=== PATIENT | female | born 1950 | race Caucasian/White ===

== ENCOUNTER 2018-04-06 10:43 | Day surgery (SDC) | payer MEDICARE, OTHER ==
[2018-04-06] VITALS (8 sets, daily range): BP systolic 112–128; BP diastolic 53–73
[~2018-04-06] VITALS: Ht 157.5 cm; Wt 77.1 kg
[~2018-04-06 10:43] MED LIST: COLACE100 MG ORAL; MIRALAX119 GM PO
[2018-04-06] MEDS ORDERED: LR 1000ml 1,000 ML IVLG SCH (11:09)
--- NOTE | 2018-04-06 11:09 | Anethesia Preoperative Eval ---
Anesthesia Pre-op PMH/ROS General Date of Evaluation: Apr 06, 2018 Time of Evaluation: 11:32 Anesthesiologist: Annmarie ASA Score: ASA 3 Mallampati Score Class I : Soft palate, uvula, fauces, pillars visible Class II: Soft palate, uvula, fauces visible Class III: Soft palate, base of uvula visible Class IV: Only hard plate visible Mallampati Classification: Class II Surgeon: Ramin Diagnosis: Abd Pain Surgical Procedure: EGD Anesthesia History: none Family History: no anesthesia problems Allergies: Coded Allergies: CODEINE (Verified Allergy, Unknown, 04/26/16) Medications: see eMAR Past Medical History Cardiovascular: Reports: HTN, other - HL Gastrointestinal/Genitourinary: Reports: GERD Other: obesity - BMI 32 Anesthesia Pre-op Phys. Exam Physician Exam Constitutional: NAD Neurologic: CN 2-12 intact Cardiovascular: RRR Respiratory: CTA Gastrointestinal: S/NT/ND Airway Exam Mallampati Score: Class II MO: full ROM: limited Teeth: intact Anesthesia Pre-op A/P Risk Assessment & Plan Assessment: ASA 3 Plan: TIVA Status Change Before Surgery: Alton Leahy MD Apr 06, 2018 11:09
[2018-04-06] MEDS ORDERED: Metoclopramide 10mg/2ml Inj IVP PRN (11:15)
[2018-04-06] MEDS ORDERED: Midazolam 2mg/2ml Inj IVP PRN (11:15)
[2018-04-06] MEDS ORDERED: LORazepam Inj 2mg/ml 1ml IV PRN (11:15)
[2018-04-06] MEDS ORDERED: Ketorolac 30mg Inj IV PRN ×2 (11:15)
[2018-04-06] MEDS ORDERED: Labetalol 5mg/ml 20ml vial IV PRN (11:15)
[2018-04-06] MEDS ORDERED: fentaNYL 100 mcg/2 mL IV PRN (11:15)
[2018-04-06] MEDS ORDERED: Atropine Inj 1mg/10ml Syr IV PRN (11:15)
[2018-04-06] MEDS ORDERED: DiphenhydrAMINE 50mg/ml Inj IVP PRN (11:15)
[2018-04-06] MEDS ORDERED: BENICAR5 MG ORAL (11:23)
[2018-04-06] MEDS ORDERED: Lidocaine 1% MPF 10mg/ml 5ml ONE (11:32)
[2018-04-06] MEDS ORDERED: Propofol 200mg/20ml IV ONE (11:32)
[2018-04-06] MEDS ORDERED: LR 1000ml ONE (11:32)
--- NOTE | 2018-04-06 11:35 | Immediate Post-Op Evaluation ---
Immediate Post-Op Evalulation Immediate Post-Op Evalulation Procedure: EGD Date of Evaluation: Apr 06, 2018 Time of Evaluation: 12:20 IV Fluids: 300 LR Blood Products: 0 Estimated Blood Loss: 1 Urinary Output: 0 Blood Pressure Systolic: 121 Blood Pressure Diastolic: 73 Pulse Rate: 76 Respiratory Rate: 16 O2 Sat by Pulse Oximetry: 100 Temperature (Fahrenheit): 98.2 Pain Score (1-10): 1 Nausea: No Vomiting: No Complications 0 Patient Status: awake, reacts, patent, none Hydration Status: adequate Alton Anguiano MD Apr 06, 2018 11:35
--- NOTE | 2018-04-06 11:36 | 48 Hour Post Anesthesia Eval ---
Post Anesthesia Evaluation Procedure: EGD Date of Evaluation: Apr 06, 2018 Time of Evaluation: 14:34 Blood Pressure Systolic: 132 0: 78 Pulse Rate: 67 Respiratory Rate: 18 Temperature (Fahrenheit): 98.4 O2 Sat by Pulse Oximetry: 100 Airway: patent Nausea: No Vomiting: No Pain Intensity: 1 Hydration Status: adequate Cardiopulmonary Status: Stable Mental Status/LOC: patient returned to baseline Follow-up Care/Observations: 0 Post-Anesthesia Complications: 0 Follow-up care needed: ready to discharge Alton Anguiano MD Apr 06, 2018 11:36
--- NOTE | 2018-04-06 11:42 | Pre-Procedure Note/Attestation ---
Pre-Procedure Note/Attestation Complete Prior to Procedure Planned Procedure: not applicable Procedure Narrative: egd Indications for Procedure Pre-Operative Diagnosis: dysphagia Attestation I attest that I discussed the nature of the procedure; its benefits; risks and complications; and alternatives (and the risks and benefits of such alternatives ), prior to the procedure, with the patient (or the patient's legal operations representative). I attest that, if there was a reasonable possibility of needing a blood transfusion, the patient (or the patient's legal operations representative) was given the [facility] standardized written summary, pursuant to the [employer] Blood Safety Act ([place] Health and Safety Code # 1645, as amended). I attest that I re-evaluated the patient just prior to the surgery and that there has been no change in the patient's H&P, except as documented below: Jeovany Faustin MD Apr 06, 2018 11:42
--- NOTE | 2018-04-06 11:44 | Short Stay Surgery H&P ---
History of Present Illness History of Present Illness Chief Complaint dysphagia HPI Sadaf Floyd is a 67 year old female who was admitted on for Abdominal Pain Patient History Allergies: Coded Allergies: CODEINE (Verified Allergy, Unknown, 04/26/16) PAST MEDICAL HISTORY: (1) GERD (gastroesophageal reflux disease) (2) Gastritis (3) HTN (hypertension) (4) Constipation Medication History Scheduled Docusate Sodium* (Colace*), 100 MG ORAL THREE TIMES A DAY Olmesartan Medoxomil (Benicar), 5 MG ORAL DAILY, (Reported) Polyethylene Glycol 3350 (Miralax), 17 GM PO DAILY Review of Systems Cardiovascular: Reports: no symptoms Respiratory: Reports: no symptoms Skeletal: Reports: no symptoms Gastrointestinal: Reports: gastro esophageal reflux disease Genitourinary: Reports: no symptoms Neurologic: Reports: no symptoms Endocrine: Reports: no symptoms Hematologic: Reports: no symptoms Physical Exam Vital Signs Last Vital Signs Date Time Temp Pulse Resp B/P (MAP) Pulse Ox O2 Delivery O2 Flow Rate FiO2 04/06/18 11:39 97.8 59 20 112/66 (81) 96 97.8 04/06/18 11:37 Room Air Skin: normal HENT: normal Heart: normal Lungs: normal Abdomen: normal Extremities: normal Plan Plan of Care egd Attestation Are the patient's medical conditions optimized for surgery? Attestation Response: yes Jeovany Faustin MD Apr 06, 2018 11:44
--- NOTE | 2018-04-06 11:57 | Endoscopy Procedure Note ---
Endoscopy Procedure Note General Indication for Procedure: gerd Procedures Performed: EGD Operative Findings/Diagnosis: gastrtis Specimen: yes Pt Tolerated Procedure Well: Yes Estimated Blood Loss: none Anesthesia Anesthesiologist: raymond Anesthesia: MAC Inserted Devices Implant(s) used?: No GI Core Measures 50 yrs or older w/o bx or poly: Not Applicable 10yrs. F/U not recommended: Not Applicable Jeovany Faustin MD Apr 06, 2018 11:56
--- NOTE | 2018-04-06 17:45 | Procedure Note ---
DATE OF PROCEDURE: 04/06/2018 SURGEON: Jeovany Faustin M.D. ANESTHESIOLOGIST: Dr. Anguiano. PROCEDURE: Upper endoscopy with biopsy. ANESTHESIA: Per Dr. Anguiano. INSTRUMENT: Olympus adult flexible upper endoscope. INDICATION: Dysphagia, chronic GERD. The procedure, risks, benefits, and possible consequences, including hemorrhage, aspiration, perforation and infection, and alternative treatments, were explained to the patient/legal guardian by Dr. Jeovany Faustin and the patient/legal guardian understood and accepted these risks. DESCRIPTION OF PROCEDURE: After informed consent was obtained and the patient was adequately sedated, Olympus upper endoscope was advanced from the mouth into the second portion of duodenum and retroflexion was performed in the stomach. The patient had evidence of a small hiatal hernia without any associated esophagitis. No inlet patch was seen. We went through the esophagus a few times just to make sure she does not have anything in the upper esophagus given her symptoms of dysphagia, but there was nothing obvious in the upper esophagus. In the stomach, there was diffuse gastritis. Random biopsy from antrum was obtained to rule out H. pylori infection. The patient had evidence of mild duodenitis. In the stomach, there was in the body of the stomach a small lesion may be about 2 mm which was a flat lesion which was biopsied. The patient tolerated procedure very well without any complication. SUMMARY OF FINDINGS: 1. Small hiatal hernia. 2. Gastritis, status post biopsy. 3. Mild duodenitis. 4. Small flat lesion in the stomach, status post biopsy. RECOMMENDATIONS: Follow up biopsy results and treat accordingly. Jeovany Faustin M.D. DR: Connie JOB#: [id number] CC:
--- NOTE | 2018-04-07 14:15 | Cardiology Report ---
APPROVED REPORT EKG Measurement Heart [id number] DC [id number] Sinus bradycardia Otherwise normal ECG
== END 2018-04-06 13:30 | disposition home or self-care (01) ==
LOC: MERGE → GAS 10:43
DX: Z12.11 Encounter for screening for malignant neoplasm of colon (principal); K64.8 Other hemorrhoids; Q43.8 Other specified congenital malformations of intestine; K29.50 Unspecified chronic gastritis without bleeding; K44.9 Diaphragmatic hernia without obstruction or gangrene; K29.80 Duodenitis without bleeding; K31.7 Polyp of stomach and duodenum; K21.9 Gastro-esophageal reflux disease without esophagitis; I10 Essential (primary) hypertension; E78.5 Hyperlipidemia, unspecified; E66.9 Obesity, unspecified; Z68.32 Body mass index [BMI] 32.0-32.9, adult; Z88.5 Allergy status to narcotic agent
CPT/HCPCS: 43239; 93005; G0121; J2704; J7120; 82948; 94003; 94150